=== PATIENT | male | born 1995 | race Two or more races ===

== ENCOUNTER → 2018-01-05 | Emergency (ER) | payer OTHER ==
[~2018-01-05] VITALS: Ht 190.5 cm; Wt 83.9 kg
[~2018-01-05] MED LIST: KETO10TA2 PO
== END | disposition home or self-care (01) ==
LOC: ER 00:27
DX: S60.221A Contusion of right hand, initial encounter (principal); W22.8XXA Striking against or struck by other objects, initial encounter; Y93.89 Activity, other specified; Y92.89 Other specified places as the place of occurrence of the external cause; Y99.8 Other external cause status

== ENCOUNTER 2018-05-02 19:35 | Emergency (ER) | payer OTHER ==
[~2018-05-02] VITALS: Ht 188 cm; Wt 84.8 kg
== END 2018-05-02 20:30 | disposition home or self-care (01) ==
LOC: ER 19:35
DX: M54.5 Low back pain (principal)

== ENCOUNTER 2019-01-21 11:32 | Outpatient (CLI) | payer OTHER | END 2019-01-21 15:00 | disposition home or self-care (01) | LOC: LAB 11:32 | DX: E78.49 Other hyperlipidemia (principal); E55.9 Vitamin D deficiency, unspecified; R42 Dizziness and giddiness; Z00.00 Encounter for general adult medical examination without abnormal findings; Z11.3 Encounter for screening for infections with a predominantly sexual mode of transmission ==

== ENCOUNTER → 2019-01-28 09:43 | Outpatient (CLI) | payer OTHER | END | disposition home or self-care (01) | LOC: EKG 09:43 | DX: R00.1 Bradycardia, unspecified (principal) ==